=== PATIENT | female | born 1995 | race African-American/Black ===

== ENCOUNTER 2019-04-10 09:13 | Emergency (ER) | payer OTHER ==
[~2019-04-10] VITALS: Ht 172.7 cm; Wt 90.0 kg
[2019-04-10 09:34] VITALS: BP 149/65
== END 2019-04-10 12:02 | disposition home or self-care (01) ==
LOC: ER 09:13
DX: J06.9 Acute upper respiratory infection, unspecified (principal)
CPT/HCPCS: 99282

== ENCOUNTER 2022-09-24 08:47 | Emergency (ER) | payer OTHER ==
[~2022-09-24] VITALS: Ht 165.1 cm; Wt 62.7 kg
[2022-09-24 09:18] VITALS: O2SAT 100
[2022-09-24] MEDS ORDERED: CEPH500T MT (09:52)
[2022-09-24] MEDS ORDERED: CIPHCO RIGHT EAR (09:52)
[2022-09-24] MEDS ORDERED: NAPR-681 PO (09:52)
[2022-09-24 11:02] VITALS: BP 145/87; PULSE 77; RESP 18; TEMP 98.5
== END 2022-09-24 11:03 | disposition home or self-care (01) ==
LOC: ER 08:47
DX: H60.91 Unspecified otitis externa, right ear (principal)
CPT/HCPCS: 99283

== ENCOUNTER 2023-05-22 09:52 | Emergency (ER) | payer OTHER ==
[~2023-05-22] VITALS: Ht 165.1 cm; Wt 59.0 kg
[~2023-05-22 09:52] MED LIST: CEPH500T MT; CIPHCO RIGHT EAR; NAPR-681 PO
[2023-05-22 10:27] VITALS: O2SAT 99
[2023-05-22 11:20] LABS: BASOPHILS % 0.4 % (0.0-2.0); EOSINOPHILS % 0.1 % (0.0-5.0); LYMPHOCYTES % 8.6 % (20.0-50.0); MEAN CORPUSCULAR HEMOGLOBIN 29.5 pg (28.0-32.0); MEAN CORPUSCULAR HGB CONC 33.4 g/dL (31.0-37.0); MEAN CORPUSCULAR VOLUME 88.2 fL (81.0-99.0); MEAN PLATELET VOLUME 8.4 fl (7.4-10.4); MONOCYTES % 8.8 % (2.0-8.0); NEUTROPHILS % 82.1 % (40.0-76.0); PLATELET 309 x1000/uL (130-400); RED BLOOD CELL COUNT 4.43 mill/uL (4.2-5.4); RED CELL DISTRIBUTION WIDTH 14.9 % (11.6-14.6); WHITE BLOOD COUNT 6.3 x1000/uL (4.5-11.0)
[2023-05-22 11:28] LABS: CLARITY URINE CLEAR (CLEAR); COLOR URINE DARK YELLOW (YELLOW); GLUCOSE URINE NEGATIVE (NEGATIVE); KETONES URINE TRACE (NEGATIVE); LEUKOCYTE ESTERASE URINE TRACE (NEGATIVE); NITRITE URINE NEGATIVE (NEGATIVE); OCCULT BLOOD URINE NEGATIVE (NEGATIVE); PROTEIN URINE TRACE (NEGATIVE); SPECIFIC GRAVITY URINE 1.027 (1.005-1.030); UROBILINOGEN URINE 0.2 E.U./dL (0.2-1.0)
[2023-05-22 11:54] LABS: ALANINE AMINOTRANSFERASE 12 IU/L (10-49); ALBUMIN 4.6 g/dL (3.2-4.8); ASPARTATE AMINOTRANSFERASE 22 IU/L (<34); B-HCG QUANTITATIVE 55382 mIU/mL (<3); BILIRUBIN TOTAL 0.4 mg/dL (0.1-1.0); CALCIUM 9.2 mg/dL (8.7-10.4); CARBON DIOXIDE 26 mEq/L (21-32); CHLORIDE 101 mEq/L (98-107); CREATININE 0.8 mg/dL (0.6-1.0); GLUCOSE 97 mg/dL (70-105); HCG SCREEN POSITIVE; POTASSIUM 3.6 mEq/L (3.5-5.1); PROTEIN TOTAL 7.8 g/dL (6.0-8.3); SODIUM 132 mEq/L (136-145); UREA NITROGEN BLOOD 7 mg/dL (9-23)
[2023-05-22 12:10] LABS: MUCUS URINE 3+ /lpf (< = 2+); SQUAMOUS EPITHELIAL CELL URINE 3+ /lpf (RARE/1+)
[2023-05-22 12:11] LABS: WBC URINE 0-2 /hpf (0-2)
[2023-05-22 12:12] LABS: BACTERIA URINE 2+
[2023-05-22] MEDS ORDERED: CEPH500T MT (14:08)
[2023-05-22 14:22] VITALS: BP 127/73; PULSE 86; RESP 14; TEMP 98.9
== END 2023-05-22 14:25 | disposition home or self-care (01) ==
LOC: ER 09:52
DX: O26.891 Other specified pregnancy related conditions, first trimester (principal); R82.71 Bacteriuria; Z3A.01 Less than 8 weeks gestation of pregnancy
CPT/HCPCS: 36415; 76801; 80053; 81003; 81025; 84702; 84703; 85025; 86850; 86900; 87070; 87430; 99284

== ENCOUNTER 2024-11-30 11:23 | Emergency (ER) | payer OTHER ==
[~2024-11-30] VITALS: Ht 165.1 cm; Wt 71.0 kg
[2024-11-30 11:47] VITALS: BP 128/74; PULSE 81; RESP 18; TEMP 36.7; O2SAT 100
[2024-11-30 11:54] VITALS: O2SAT 99
[2024-12-01] MEDS ORDERED: IBUP-1455 MT (00:40)
[2024-12-01] MEDS ORDERED: CEPH500T MT (00:40)
== END 2024-11-30 13:21 | disposition left against medical advice (07) ==
LOC: ER 11:23
DX: S80.862A Insect bite (nonvenomous), left lower leg, initial encounter (principal); Z53.21 Procedure and treatment not carried out due to patient leaving prior to being seen by health care provider; W57.XXXA Bitten or stung by nonvenomous insect and other nonvenomous arthropods, initial encounter; Y93.89 Activity, other specified; Y92.89 Other specified places as the place of occurrence of the external cause; Y99.8 Other external cause status

== ENCOUNTER 2024-11-30 23:22 | Emergency (ER) | payer OTHER ==
[~2024-11-30] VITALS: Ht 165.1 cm; Wt 71.5 kg
[2024-11-30 23:23] VITALS: O2SAT 98
[2024-11-30 23:26] VITALS: BP 112/50; PULSE 73; RESP 16; TEMP 36.7; O2SAT 99
[2024-12-01] MEDS ORDERED: CEPH500T MT (00:40)
[2024-12-01] MEDS ORDERED: IBUP-1455 MT (00:40)
== END 2024-12-01 01:42 | disposition home or self-care (01) ==
LOC: ER 23:22
DX: L03.116 Cellulitis of left lower limb (principal); Z87.730 Personal history of (corrected) cleft lip and palate; Z98.51 Tubal ligation status
CPT/HCPCS: 99283